=== PATIENT | female | born 1950 | race Caucasian/White ===

== ENCOUNTER 2025-07-07 09:58 | Outpatient (AMB) | payer MEDICARE, SELFPAY ==
--- NOTE | 2025-07-07 10:07 | A.OFFVIS_ITS ---
Intake Visit Reasons: 1 yr Allergies No Known Allergies Allergy (Verified 07/03/25 13:19) HPI Comments Details: 75 yo RH woman who I initially saw in April 2024 when she came to find out if he had Parkinson's disease. She said that she had seen a neurologist in [place] few years prior to that and was diagnosed with possible Parkinson's in a medicine was prescribed. Apparently she had some side-effects from the medicine and did not take it. To my examination, she had mild cerebellar features with tremor, especially speech tremor. She is presenting for management of anxiety. She reports an increase in anxiety, particularly when she is in a car, and is not currently taking any medication for this condition. She has an upcoming car trip and requested medication to help manage her symptoms. [facility] Medical History (Updated 07/07/25 @ 10:13 by Sánchez Vanegas MD) Cerebral microvascular disease Review of Systems Narrative - Psychiatric: Reports increased anxiety and nervousness, particularly when in a car. Physical Exam Neuro Other: Mental Status: Alert and oriented to person, place, and time. Normal attention. Normal spontaneous speech, fluency, and comprehension. No obvious issues with mood and memory. Affect is appropriate. Cranial Nerves: CN II: Visual castro full to confrontation, visual acuity intact. CN III, IV, : Pupils equal, round, reactive to light and accommodation. Extraocular movements are normal. CN V: Facial sensation is normal. CN VII: Facial movements symmetrical. CN VIII: Hearing intact to bedside conversation is normal. CN IX, X: Palate elevates symmetrically. CN XI: Shoulder shrug and head turn symmetrical. CN XII: Tongue midline without atrophy or fasciculations. Motor: Bulk and tone normal in all extremities. No significant muscle weakness in arms and legs. No drift. Reflexes: Deep tendon reflexes 2+ and symmetric. Plantar response down-going bilaterally. Coordination: [id number] with minimum tremor Gait and Station: Mild difficulty with tandem gait Extrapyramidal: Full facial expressions and blinking. No rigidity. Movements are appropriate with no tremor or abnormality. Speech: Moderate cerebellar type speech Assessment & Plan Assessment & Plan (1) Tremor: Comment: CT brain WO at [facility] in 2020 and 2023: Mild cortical and cerebellar atrophy, mild to mod MVD Code(s): R25.1 - Tremor, unspecified Category: Medical (2) Anxiety: Code(s): F41.9 - Anxiety disorder, unspecified Category: Medical Plan Impression recommendations: 75 years old woman with anxiety and mild cerebellar type tremor and dysarthria. Recommendations: He was reassured and educated and was advised to try escitalopram 2.5-5 mg a day. I discussed the patient's symptoms of anxiety, particularly related to car travel. I have prescribed a new medication for anxiety and explained that she should start with half a 5 mg pill each morning at breakfast. I advised that if this dose is not sufficient after one to two weeks, she may increase to a full pill. I confirmed the prescription was sent to her mail-in pharmacy and instructed her to call if she does not receive it in a timely manner. We will follow up in three months to assess her response to the treatment. Medications: New escitalopram oxalate 5 mg PO DAILY 90 tabs 0RF Coding Level of Care Code Est Pt Level 3 (03341) Diagnoses Tremor R25.1 Anxiety F41.9
--- OUTSIDE RECORDS SUMMARY | 2025-07-07 11:53 | XMS_ITS | Clinical Summary ---
Author Organization [facility] Address [address] [facility] [address] [place] [phone] Phone Care Team Providers Care Central Sterile Tech Name Role Phone Ricarda Rodriguez MD Primary Care Provide r Social History Tobacco Use Types Packs/Day Years Used Date Smoking Tobacco: Never Assessed Education Answer Date Recorded Are you interested in more education? Not on mahendra e 03/06/2025 Are you concerned about learning? Not on file 03/06/2025 No 03/06/2025 No 03/06/2025 Digital Access Answer Date Recorded No 03/06/2025 No 03/06/2025 Reliable internet access at home? Not on file 03/06/2025 Device with a working camera? Not on file Comments Unknown Sex and Gender Information Value Date Recorded Sex Assigned at Not on file Legal Sex Female 8:07 AM EDT Gender Identity Not on file Sexual Orientation Not on file Plan of Treatment Health Maintenance Due Date Last Done Comments Adult Td,Tdap Booster 1950 LIPID PANEL 1949 DEPRESSION SCREENING 1961 SMOKING Hx and SMOKELESS TOB ACCO SCREENING 1962 HEPATITIS C SCREENING 1967 PNEUMOCOCCAL VACCINES (50+ y ears) (1 of 1 - PCV) 1999 ZOSTER VACCINES (1 of 2) 1999 OSTEOPOROSIS SCREENING INITI AL (ONE-TIME) 2014 RSV VACCINE (1 - 1-dose 75+ series) 2024 INFLUENZA VACCINE (#1) 2025 COVID-19 VACCINE (1 - 2025-2 6 season) 2025 HEPATITIS A VACCINES Aged Out No long er eligible based on patient's age to complete this topic HIB VACCINES Aged Out No longer eligi ble based on patient's age to complete this topic MENINGOCOCCAL VACCINES (ACWY) Aged Out No longer eligible based on patient's age to complete this topic MENINGOCOCCAL VACCINES (B) Aged Out N o longer eligible based on patient's age to complete this topic Medical Devices Not on file Insurance [employer] Care Teams Central Sterile Tech Relationship Specialty Start Date End Date Ricarda Rodriguez MD [address] [address] PCP - General Internal Medicine 03/06/25 Additional Source Comments The information contained in this document represents components of the legal health record. It is not the complete legal health record.[facility]
--- OUTSIDE RECORDS SUMMARY | 2025-07-07 11:53 | XMS_ITS | Data Portability ---
Author Organization [place] [facility], Allergy Address [address] [address] Care Team Providers Care Tool Hardener Name Role Phone LUKE RAMOS Primary Care Provider LUKE RAMOS Referring Provider Assessment Encounter Date Assessment Date Assessment LastModified by Organization Details LastModified Time 12/18/2023 12/18/2023 Patient vocal changes were investigated with a fiberoptic laryngoscopy today. I appreciated some vocal tremor movements. No other lesions were identified. I would like to arrange for her to undergo video stroboscopy which may help shed additional information on diagnosis of Parkinson's versus essential tremor of the larynx dplosky Not available 12/18/2023 11:38:44 Plan of Treatment Reminders Order Date Submit Date Provider Last Modified By Organization Details Last Modified Time Details Appointments None recorded. Lab None recorded. Referral speech therapy referral - Referral for vocal tremor, hx of parkinson dx. Trying to determine if vocal changes are related. 2023 024 [facility], [address] [place] [address] [place], [address], 21:56:16 Procedures None recorded. Surgeries None recorded. Imaging None recorded. Medication Orders None recorded. Patient TargetsNo targets recorded. Patient InstructionsNo instructions recorded. Reason for Referral Referral for vocal tremor, h x of parkinson dx. Trying to determine if vocal changes are related. Referring Physician: Donaldo Doshi, Otolaryngology, Encounter Date: 12/18/2023 Problems Name Problem SNOMED Code Status Onset Date Resolution Date Notes Provider Name and Address Organization Details Recorded Time Asymmetri gay sensorine ural hearing loss 964313710 Active 2014 Sensorineu ral HL, asymmetric ; Note: Date Diagnosed: 09/08/2014 1:40 PM (389.16) Not Available [facility] 4 03:28:55 Sensorine ural hearing loss 01308019 Active 2015 Sensorineu ral hearing loss, unilateral , left ear, with unrestrict ed hearing on the contralate ral side; Note: Date Diagnosed: 10/02/2015 10:02 AM (H90.42) Not Available [facility] 4 03:28:55 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 Procedures Surgical History Date Name Laterality Status Provider Name and Address Organization Details Recorded Time 12/18/2023 FOL_DP completed DONALDO DOSHI MD [address] [place] [address], [place], [phone], [facility] 12/18/2023 11:36:23 Imaging Results None recorded. Procedure Notes None recorded. Medical Equipment None Reported. Vitals Date Recorded Body height Body mass index (BMI) Body weight Provider Name and Address Organization Details Last Updated DateTime 12/18/2023 167.64 cm 18.6 kg/m2 14145.12 g Lis Chavarria [facility] 12/18/2023 11:19:03 Social History None recorded. Functional Status None recorded. Mental Status None recorded. Family History Nothing Reported. Medical History No medical history recorded. Gynecological HistoryNo gynecological history recorded. Obstetrics History GPAL:G 0 P 0 0 0 0 Past Encounters Encounter ID Performer Location Encounter Start Date Encounter Closed Date Diagnosis/Indication Diagnosis SNOMED-CT Code Diagnosis ICD10 Code Diagnosis IMO Codes Diagnosis Note [id number] DONALDO DOSHI MD [facility] [address] [place] [address] 12/18/2023 10:58:26 12/18/2023 11:49:23 Isolated vocal tremor 195765011 G25.0 Parkinson's disease 4904 9000 G20.A1 Health Concerns Section Related Observation LastModified by Organization Detai ls LastModified Time None Recorded Concern Status LastModified by Organization Details LastModified Time None Recorded Advance Directives Directive None Recorded Payers Insurance Date Sequence Insurance Name Policy Number Policy Harris Covered Member ID Harris Member ID Guarantor Name 12/20/2023 1 [facility] - MEDICARE PREFERRED (MEDICARE REPLACEMENT HMO) SOL Enedina Calvillo [id number] Enedina Calvillo 12/18/2023 1 [facility] - PREFERRED (MEDICARE SUPPLEMENT) NADINE Calvillo [id number] 1 Enedina Calvillo 12/18/2023 1 [facility] (HMO) SOL Enedina Calvillo [id number] Enedina Calvillo Notes Date Note Type Note Provider Name and Address Organization Details Recorded Time 12/18/2023 text/html ROS as noted in the HPI shaky voicedx with parkinson in 2019vocal changes attributed to age initially, but later was referred to SLPno dysphagiatremors in hand attributed to parkinson and not essential tremors DONALDO DOSHI MD [address] [place] [address], [place], [address], [facility] - [facility] 12/18/2023 11:39:19 OBGyn Episode No OBEpisode recorded.
--- OUTSIDE RECORDS SUMMARY | 2025-07-07 11:53 | XMS_ITS | Clinical Summary ---
Author Organization [facility] Prior to 12/14/24 Address [address] [place] [address] Care Team Providers Care High [employer] Art Teacher Name Role Phone Minh Sherman MD Primary Care Provider [phone] Allergies No known active allergies Medications Medication Sig Dispensed Refills Start Date End Date Status atorvastatin (LIPITOR) tablet 20 mg Take 20 mg by mouth daily. 0 Active calcium carbonate (OS-CONSTANCE) 600 MG tablet Take 600 mg by mouth daily. 0 Active vitamin D3 (VITAMIN D3) 25 MCG (1000 UT) tablet Take 1,000 Units by mouth daily. 0 Active Active Problems Problem Noted Date Diagnosed Date Complete heart block by electrocardiogram 2019 Overview: Permanent pacemaker December 2019 Renal stones 10/02/2013 Osteopenia 09/15/2011 Overview: Overview: Femoral neck Tubular adenoma 10/22/2010 Overview: Overview: CN q 5 yrs; DR. Cook Pure hypercholesterolemia 09/29/2005 Abnormal involuntary movement 09/29/2005 Family History Medical History Relation Name Comments Kidney cancer Brother Lung cancer Father Kidney cancer Mother Breast cancer Sister Relation Name Status Comments Brother (Age 34) Father (Age 83) lung cance r, nonsmoker Mother (Age 90+) ghassan [place] in 70s Sister Alive breast cancer i n 50s Social History Tobacco Use Types Packs/Day Years Used Date Smoking Tobacco: Never Smokeless Tobacco: Never Alcohol Use Standard Drinks/Week Comments Yes 1 (1 standard drink = 0.6 oz pur e alcohol) Sex and Gender Information Value Date Recorded Sex Assigned at Not on file Gender Identity Not on file Sexual Orientation Not on file Last Filed Vital Signs Vital Sign Reading Time Taken Comments Blood Pressure 147/89 02/27/2020 9:29 AM EDT Pulse 72 02/27/2020 9:29 AM EDT Temperature 36.4 C (97.5 F) 02/27/2020 9:29 AM EDT Respiratory Rate - - Oxygen Saturation - - Inhaled Oxygen Concentration - - Weight 54.1 kg (119 lb 3.2 oz) 02/27/2020 9:29 A M EDT Height 167.6 cm (5' 6 ) 02/27/2020 9:29 AM EDT Body Mass Index 19.24 02/27/2020 9:29 AM EDT Plan of Treatment Health Maintenance Due Date Last Done Comments Hepatitis C Screening 1950 COVID-19 Vaccine (#1) 1949 Depression Screening 1961 Preventative Health Evaluation 1967 Shingrix-Zoster Vaccine (1 of 2) 1999 Fall Risk Assessment 2014 Osteoporosis Screening (DEXA Scan) 2014 Pneumococcal Vaccine (1 of 1 - PCV) 2014 DTap / Tdap / Td (2 - Td or Tdap) 08/08/2022 08/08/2012 RSV Adult > 60+ Yrs or (1 - 1-dose 75+ series) 2024 Influenza Vaccine (#1) 2025 4, 04/16/2012, 04/25/2011, Additional history exists Hepatitis B Vaccines Aged Out No long er eligible based on patient's age to complete this topic RSV Ped < 20 months Aged Out No longe r eligible based on patient's age to complete this topic Care Teams High [employer] Art Teacher Relationship Specialty Start Date End Date Minh Sherman MD [address] [place] [phone] PCP - General Internal Medicine 02/19/20
== END 2025-07-07 10:16 | disposition home or self-care (01) ==
LOC: HO.HSM 09:58
PROVIDERS: PCP Internal Medicine; Visit Provider Psychiatry & Neurology Neurology
DX: R25.1 Tremor, unspecified (principal); F41.9 Anxiety disorder, unspecified
CPT/HCPCS: 99213

== ENCOUNTER → 2025-07-07 09:58 | Outpatient (BNVA) | payer MEDICARE, SELFPAY | PROVIDERS: PCP Internal Medicine; Visit Provider Psychiatry & Neurology Neurology | DX: R25.1 Tremor, unspecified (principal); F41.9 Anxiety disorder, unspecified | CPT/HCPCS: 99212 ==